=== PATIENT | male | born 1985 | race Two or more races ===

== ENCOUNTER 2018-01-12 04:56 | Emergency (ER) | payer BC, OTHER ==
[~2018-01-12] VITALS: Ht 180.3 cm; Wt 136.1 kg
[2018-01-12 05:12] VITALS: BP 221/141
[2018-01-12] MEDS ORDERED: cloNIDine HCL 0.1 MG TAB PO ONE (05:15)
== END 2018-01-12 05:32 | disposition left against medical advice (07) ==
LOC: ER 05:02
DX: M25.561 Pain in right knee (principal); M25.571 Pain in right ankle and joints of right foot; Z53.21 Procedure and treatment not carried out due to patient leaving prior to being seen by health care provider

== ENCOUNTER 2019-05-26 07:52 | Emergency (ER) | payer OTHER ==
[~2019-05-26] VITALS: Ht 182.9 cm; Wt 136.1 kg
[2019-05-26] MEDS ORDERED: cloNIDine HCL 0.1 MG TAB PO ONE (08:45)
[2019-05-26] MEDS: diphenhdrAMINE HCL 50 MG/1 ML VL IM ONE ×2 (08:45→09:04)
[2019-05-26] MEDS ORDERED: IPRATROPIUM BROM 0.5 MG/2.5ML INH SOL NEB ONE (08:45)
[2019-05-26] MEDS ORDERED: ALBUTEROL SULF 2.5 MG/0.5ML(0.5%) NEB SOLN NEB ONE (08:45)
[2019-05-26 09:50] VITALS: BP 147/90
== END 2019-05-26 09:56 | disposition home or self-care (01) ==
LOC: ER 07:54
DX: J45.901 Unspecified asthma with (acute) exacerbation (principal); I10 Essential (primary) hypertension; H66.93 Otitis media, unspecified, bilateral; F17.210 Nicotine dependence, cigarettes, uncomplicated
CPT/HCPCS: 94640; 96372; 99283; J1200; J7611; J7644